=== PATIENT | male | born 1945 | race Hispanic/Latino ===

== ENCOUNTER 2017-07-06 08:07 | Emergency (ER) | payer OTHER ==
[~2017-07-06 08:07] MED LIST: AMIO200T44 PO; ASPI-1005 PO; CARV3.1262 PO; FURO20TA6 PO; GLYB5TAB8 PO; INSU100I21 SQ; LISI-617 PO; SIMV20TA6 PO; VITAMIN B1 PO
[2017-07-06 08:44] LABS: BASOPHILS % (AUTO) 0.7 % (0.0-5.0); EOSINOPHILS % (AUTO) 1.4 % (0.0-8.0); HEMATOCRIT 44.8 % (42-54); MEAN CORPUSCULAR HEMOGLOBIN 28.9 pg (27.0-33.0); MEAN CORPUSCULAR HGB CONC 34.4 g/dL (32.0-36.0); MEAN CORPUSCULAR VOLUME 83.9 fL (79-99); MONOCYTES % (AUTO) 3.8 % (3.0-13.0); NEUTROPHILS % (AUTO) 87.1 % (40.0-77.0); PLATELET COUNT (AUTO) 162 K/uL (130-400); RED BLOOD CELL COUNT(AUTO) 5.34 MIL/uL (4.50-6.20); RED CELL DISTRIBUTION WIDTH 13.8 % (11.0-15.5); WHITE BLOOD COUNT (AUTO) 12.1 K/uL (4.8-10.8)
[2017-07-06 09:16] LABS: INR 0.98 (0.85-1.15); PARTIAL THROMBOPLASTIN TIME 25.4 SEC (26.3-35.5); PROTHROMBIN TIME 10.3 SEC (9.6-11.6)
[2017-07-06 09:29] LABS: POTASSIUM 4.2 mmol/L (3.5-5.1)
[2017-07-06] MEDS ORDERED: MORPHINE SULFATE 2 MG/ML 1ML SYG ONE (10:09)
[2017-07-06] MEDS ORDERED: MORPHINE SULFATE 4 MG/1ML SYG ONE (11:25)
[2017-07-06] MEDS ORDERED: MORPHINE SULFATE 4 MG/1ML SYG IVP ONE (11:26)
== END 2017-07-06 13:33 | disposition home or self-care (01) ==
LOC: EDH 08:07
DX: S72.115A Nondisplaced fracture of greater trochanter of left femur, initial encounter for closed fracture (principal); E11.9 Type 2 diabetes mellitus without complications; I10 Essential (primary) hypertension; Z79.4 Long term (current) use of insulin; W06.XXXA Fall from bed, initial encounter; Y93.89 Activity, other specified; Y92.89 Other specified places as the place of occurrence of the external cause; Y99.8 Other external cause status
CPT/HCPCS: 36415; 73502; 73700; 80048; 85025; 85610; 85730; 96374; 96376; 99285; J2270